=== PATIENT | female | born 1945 | race Caucasian/White ===

== ENCOUNTER 2020-06-14 20:37 | Emergency (ER) | payer MEDICARE ==
[~2020-06-14 20:37] MED LIST: ASPIRIN325 MG PO; CIPRO500 MG PO; COREG12.5 MG PO; COZAAR100 MG PO; CYCLOBENZAPRINE10 MG PO; DUONEB 2.5-0.5M1 AMP INH; GLUCOTROL XL5 MG PO; HYDREA500 MG PO; K-DUR20 MEQ PO; KEFLEX500 MG PO; LASIX40 MG PO; LIDOCAINE 5% P1 EACH TOP; MACROBID100 MG PO; METFORMIN HCL500 MG PO; NITROSTAT0.4 MG SL; NORCO 7.5-3251 EACH PO; PRILOSEC20 MG PO; VENTOLIN HFA IN18 GM INH; WELLBUTRIN XL150 MG PO; ZOCOR40 MG PO
[2020-06-14 21:28] LABS: BASOPHIL 0.9 % (0-2); EOSINOPHIL 0.3 % (0-7); HCT 38.8 % (37.0-47.0); HGB 12.5 g/dl (12.5-16.0); LYMPHOCYTE 6.1 % (15-48); MCH 38.5 pg (25.0-31.0); MCHC 32.2 g/dL (32.0-36.0); MCV 119.4 fL (78.0-100.0); MONOCYTE 5.7 % (0-12); NEUTROPHIL 83.1 % (41-80); NRBC 0.4; PLT 509 K/uL (150-400); RBC 3.25 M/uL (4.20-5.40); RDW 19.5 % (11.5-14.0)
[2020-06-14 21:29] LABS: WBC 23.3 K/uL (4.0-10.5)
[2020-06-14 21:32] LABS: INR 1.52 (0.9-1.2); PROTHROMBIN TIME 17.4 SECONDS (11.4-13.6)
[2020-06-14 21:33] LABS: PTT 51.3 SECONDS (22.2-34.7)
[2020-06-14 21:49] LABS: ALBUMIN 2.3 g/dL (3.4-5.0); BILIRUBIN - TOTAL 0.2 mg/dL (0.2-1.0); BUN/CREAT RATIO (CALC) 83.3 RATIO; CREATININE 0.3 mg/dL (0.51-0.95); FT4 (FREE T4) 1.2 ng/dL (0.76-1.46); GLOBULIN (CALCULATION) 4.7 g/dL; POTASSIUM 4.6 mmol/L (3.5-5.1)
[2020-06-14 22:12] LABS: BILIRUBIN NEGATIVE (NEGATIVE); BLOOD 1+ Ery/uL (NEGATIVE); CLARITY CLOUDY (CLEAR); COLOR YELLOW (YELLOW); GLUCOSE (U) NORMAL (NORMAL); LEUKOCYTES 2+ Leu/uL (NEGATIVE); NITRITE NEGATIVE (NEGATIVE); PROTEIN TRACE (LOW) mg/dL (NEGATIVE); SPECIFIC GRAVITY 1.025 (1.001-1.030); UROBILINOGEN 0.2 mg/dL (0.2-1.0)
[2020-06-14 22:13] LABS: AMPHETAMINES NEGATIVE (NEGATIVE); BARBITURATES NEGATIVE (NEGATIVE); ECSTASY (MDMA) NEGATIVE (NEGATIVE); MARIJUANA (THC) NEGATIVE (NEGATIVE); METHADONE NEGATIVE (NEGATIVE); OPIATES POSITIVE (NEGATIVE)
[2020-06-14 22:14] LABS: OXYCODONE NEGATIVE (NEGATIVE)
[2020-06-14 22:17] LABS: BACTERIA 4+
[2020-06-14 22:41] LABS: CORONAVIRUS 2019 SARS-COV-2 POSITIVE (NEGATIVE)
[2020-06-14 22:42] LABS: INFLUENZA A NAA NEGATIVE (NEGATIVE)
== END 2020-06-15 09:15 | disposition other institution (70) ==
LOC: FER 20:37
PROVIDERS: Student in an Organized Health Care Education/Training Program
DX: A41.89 Other specified sepsis (principal); U07.1 COVID-19; I21.4 Non-ST elevation (NSTEMI) myocardial infarction; N39.0 Urinary tract infection, site not specified; D72.819 Decreased white blood cell count, unspecified; R74.02 Elevation of levels of lactic acid dehydrogenase [LDH]; I10 Essential (primary) hypertension; K21.9 Gastro-esophageal reflux disease without esophagitis; E05.90 Thyrotoxicosis, unspecified without thyrotoxic crisis or storm; Z79.899 Other long term (current) drug therapy
CPT/HCPCS: 36415; 71045; 80053; 80305; 81001; 82553; 83605; 84439; 84443; 84481; 84484; 85025; 85610; 85730; 87040; 93005; J1644; J2543; J3370; J7030; J7040; U0002